=== PATIENT | female | born 1955 | race African-American/Black ===

== ENCOUNTER 2020-03-17 14:33 | Emergency (ER) | payer BC ==
[~2020-03-17] VITALS: Ht 157.5 cm; Wt 81.0 kg
[2020-03-17] MEDS ORDERED: KETOROLAC 60MG/2ML VIAL IM ONE (16:30)
[2020-03-17] MEDS ORDERED: HYDROCODONE/ACETAMINOPHEN 5/325MG TABLET PO ONE (16:30)
[2020-03-17 17:20] VITALS: BP 130/78
== END 2020-03-17 17:20 | disposition home or self-care (01) ==
LOC: ER 15:15
DX: M54.42 Lumbago with sciatica, left side (principal); M19.90 Unspecified osteoarthritis, unspecified site; R03.0 Elevated blood-pressure reading, without diagnosis of hypertension
CPT/HCPCS: 96372; 99283; J1885